=== PATIENT | female | born 1965 | race Caucasian/White ===

== ENCOUNTER → 2017-01-29 | Outpatient (CLI) | payer OTHER ==
[~2017-01-29] MED LIST: LOW-OGESTREL1 EACH PO; TORADOL 10 MG T10 MG PO
== END ==
LOC: NUC 07:49
DX: R10.10 Upper abdominal pain, unspecified (principal)

== ENCOUNTER → 2017-02-02 | Outpatient (CLI) | payer OTHER | LOC: MRI 06:04 | DX: R10.11 Right upper quadrant pain (principal) ==

== ENCOUNTER → 2018-01-04 | Outpatient (CLI) | payer BC, OTHER | LOC: RAD 15:00 | DX: Z12.31 Encounter for screening mammogram for malignant neoplasm of breast (principal) ==

== ENCOUNTER → 2019-10-25 | Outpatient (CLI) | payer BC, OTHER | LOC: ULTRA 14:04 → RAD 14:04 | PROVIDERS: ATTEND Obstetrics & Gynecology | DX: Z12.31 Encounter for screening mammogram for malignant neoplasm of breast (principal); N63.10 Unspecified lump in the right breast, unspecified quadrant ==

== ENCOUNTER → 2021-01-03 | Outpatient (CLI) | payer BC, OTHER | LOC: RAD 09:40 | PROVIDERS: ATTEND Orthopaedic Surgery | DX: M85.88 Other specified disorders of bone density and structure, other site (principal); M51.36 Other intervertebral disc degeneration, lumbar region ==

== ENCOUNTER → 2021-02-18 | Outpatient (CLI) | payer BC, OTHER | LOC: RAD 10:40 | PROVIDERS: ATTEND Obstetrics & Gynecology | DX: Z12.31 Encounter for screening mammogram for malignant neoplasm of breast (principal); N60.01 Solitary cyst of right breast ==